=== PATIENT | male | born 1990 | race Caucasian/White ===

== ENCOUNTER 2018-02-12 06:35 | Emergency (ER) | payer OTHER ==
[~2018-02-12] VITALS: Ht 182.9 cm; Wt 81.6 kg
[2018-02-12 06:42] VITALS: BP 151/82
[2018-02-12] MEDS ORDERED: PROAIR HFA8.5 GM INH (07:14)
--- NOTE | 2018-02-12 07:15 | ED DYSPNEA/ASTHMA COMPLAINT ---
History of Present Illness General Chief Complaint: General Adult Stated Complaint: DIFF BREATHING, "I JUST NEED A INHALER" PER PT Source: patient Exam Limitations: no limitations Vital Signs & Intake/Output Vital Signs & Intake/Output Vital Signs Date Time Temp Pulse Resp B/P B/P Pulse O2 O2 Flow FiO2 Mean Ox Delivery Rate 02/12 0647 93 Room Air 02/12 0642 97.0 97 20 151/82 93 Room Air Allergies Coded Allergies: NO KNOWN ALLERGIES (06/27/13) Reconcile Medications Albuterol Sulfate (Proair Hfa) 90 MCG HFA.AER.AD 2 INH INH Q6P PRN ASTHMA Triage Note: PT REPORTS RECENTLY QUITTING SMOKING AND HAVING 4 CATS AND HAVING ALLERGIES. PT STATES THAT " I NEED AN INHALER". SPO2 935 RA. Triage Nurses Notes Reviewed? yes Onset: Gradual Duration: day(s):, constant, continues in ED, waxing and waning Severity: moderate Activities at Onset: none Prior Episodes/Possible Cause: occasional episodes HPI: Patient presents for evaluation of worsening shortness of breath since yesterday. Patient feels he needs an inhaler to help with his breathing. Although he does not have a formal history of asthma he states he has used an inhaler in the past. Shortness of breath is characterized as mild to moderate but worse with exertion. He denies any associated fever or cold symptoms. Past History Travel History Traveled to [place] past 21 day No Medical History Any Pertinent Medical History? see below for history Neurological: NONE EENT: allergies Cardiovascular: NONE Respiratory: NONE Gastrointestinal: NONE Hepatic: NONE Renal: NONE Musculoskeletal: NONE Psychiatric: NONE Endocrine: NONE Blood Disorders: NONE Cancer(s): NONE RELEASE SPECIALIST/Reproductive: NONE Surgical History Surgical History: non-contributory Psychosocial History What is your primary language Albanian Tobacco Use: Current Daily Use ETOH Use: denies use Illicit Drug Use: denies illicit drug use Family History Hx Contributory? No Review of Systems Review of Systems Constitutional: Reports: no symptoms. EENTM: Reports: no symptoms. Respiratory: Reports: see HPI. Cardiovascular: Reports: no symptoms. GI: Reports: no symptoms. Genitourinary: Reports: no symptoms. Musculoskeletal: Reports: no symptoms. Skin: Reports: no symptoms. Neurological/Psychological: Reports: no symptoms. Hematologic/Endocrine: Reports: no symptoms. Immunologic/Allergic: Reports: no symptoms. All Other Systems: Reviewed and Negative Physical Exam Physical Exam Respiratory: SEE BELOW Comments: Gen.: Well-nourished, well-developed, no acute respiratory distress. Head: Normocephalic, atraumatic. Eyes: Normal inspection bilaterally Ears: Normal inspection bilaterally Nose: Normal inspection Throat/mouth : Moist mucosa Neck: Supple, full range of motion, no goiter Heart: Regular rate and rhythm, no murmurs rubs or gallops Lungs: Decreased air entry bilaterally with scattered wheezes, no rales or rhonchi Chest: Nontender Back: Normal range of motion Abdomen: Soft, nontender, nondistended, normal bowel sounds Extremities: Normal range of motion grossly, equal radial pulses, no cyanosis clubbing or edema Neurologic: Cranial nerves grossly intact, speech is clear Skin: warm and dry Psychiatric: Calm, cooperative, no apparent delusions or hallucinations Core Measures ACS in differential dx? No CVA/TIA Diagnosis No Sepsis Present: No Sepsis Focused Exam Completed? No Progress Differential Diagnosis: asthma, bronchitis, CHF, COPD, pneumonia Plan of Care: See discharge instructions Initial ED EKG: none Comments: Patient declined treatment or testing in the emergency department. Departure Departure Disposition: HOME OR SELF CARE Condition: Stable Clinical Impression Primary Impression: Asthmatic bronchitis Referrals: Patient Has No Primary Care Dr (PCP/Family) Additional Instructions: Albuterol inhaler as prescribed for your difficulty breathing. Follow-up with a primary care physician on Thursday for reevaluation. Return if any concerns or sudden worsening. If you do not currently have a primary care physician then please contact the [facility] care practice at the following phone number: . Departure Forms: Customer Survey General Discharge Information Prescriptions: Current Visit Scripts Albuterol Sulfate (Proair Hfa) 2 INH INH Q6P PRN ASTHMA #1 INHAL Critical Care Note Critical Care Note Critical Care Time: non-applicable
== END 2018-02-12 07:22 ==
LOC: ERH 06:35
DX: J45.909 Unspecified asthma, uncomplicated (principal); F17.200 Nicotine dependence, unspecified, uncomplicated